=== PATIENT | male | born 1955 | race Two or more races ===

== ENCOUNTER → 2017-03-21 | Outpatient (CLI) | payer MEDICARE | END | disposition home or self-care (01) | LOC: CFH 15:21 → EDSTATUS 15:45 | PROVIDERS: ATTEND Physician Assistant | DX: M51.36 Other intervertebral disc degeneration, lumbar region (principal); M51.26 Other intervertebral disc displacement, lumbar region; E04.1 Nontoxic single thyroid nodule; M48.06 Spinal stenosis, lumbar region; I10 Essential (primary) hypertension | CPT/HCPCS: 72148; 76536 ==

== ENCOUNTER 2017-04-15 12:53 | Emergency (ER) | payer MEDICARE ==
[~2017-04-15] VITALS: Ht 172.7 cm; Wt 72.5 kg
[2017-04-15] MEDS ORDERED: HYDROmorphone 1 MG/ML, 1ML IM ONE (13:30)
[2017-04-15] MEDS ORDERED: IBUPROFEN 200 MG TABLET PO ONE (13:30)
[2017-04-15] MEDS ORDERED: DIAZEPAM 5 MG TABLET PO ONE (13:30)
[2017-04-15] MEDS ORDERED: HYDROmorphone 1 MG/ML, 1ML ONE (13:46)
[2017-04-15] MEDS ORDERED: IBUPROFEN 200 MG TABLET ONE (13:46)
[2017-04-15] MEDS ORDERED: DIAZEPAM 5 MG TABLET ONE (13:46)
[2017-04-15 14:29] VITALS: BP 107/67
== END 2017-04-15 14:31 | disposition home or self-care (01) ==
LOC: ED 14:25
DX: S39.012A Strain of muscle, fascia and tendon of lower back, initial encounter (principal); I10 Essential (primary) hypertension; X58.XXXA Exposure to other specified factors, initial encounter; Y93.89 Activity, other specified; Y92.89 Other specified places as the place of occurrence of the external cause; Y99.8 Other external cause status
CPT/HCPCS: 96372; 99283; J1170

== ENCOUNTER → 2018-01-19 | Outpatient (CLI) | payer MEDICARE | LOC: CFH 13:43 | PROVIDERS: ATTEND Physician Assistant | DX: E04.1 Nontoxic single thyroid nodule (principal); M54.5 Low back pain; I10 Essential (primary) hypertension; F17.200 Nicotine dependence, unspecified, uncomplicated; R73.01 Impaired fasting glucose; E55.9 Vitamin D deficiency, unspecified; R94.6 Abnormal results of thyroid function studies; E05.90 Thyrotoxicosis, unspecified without thyrotoxic crisis or storm; M79.672 Pain in left foot; R68.82 Decreased libido; F32.9 Major depressive disorder, single episode, unspecified | CPT/HCPCS: 76536 ==

== ENCOUNTER → 2018-03-26 | Outpatient (CLI) | payer MEDICARE | END | disposition home or self-care (01) | LOC: CFH 09:29 | PROVIDERS: ATTEND Physician Assistant | DX: M48.061 Spinal stenosis, lumbar region without neurogenic claudication (principal); M51.36 Other intervertebral disc degeneration, lumbar region | CPT/HCPCS: 72114; 72148 ==

== ENCOUNTER → 2018-07-14 | Outpatient (CLI) | payer MEDICARE | END | disposition home or self-care (01) | LOC: CFH 14:20 | PROVIDERS: ATTEND Physician Assistant | DX: M25.551 Pain in right hip (principal); F17.200 Nicotine dependence, unspecified, uncomplicated ==

== ENCOUNTER → 2019-02-11 | Outpatient (CLI) | payer MEDICARE | END | disposition home or self-care (01) | LOC: CFH 15:55 | DX: M41.86 Other forms of scoliosis, lumbar region (principal); M47.816 Spondylosis without myelopathy or radiculopathy, lumbar region; F17.200 Nicotine dependence, unspecified, uncomplicated; Z98.890 Other specified postprocedural states | CPT/HCPCS: 72100 ==